=== PATIENT | male | born 1970 | race African-American/Black ===

== ENCOUNTER 2018-04-26 00:10 | Inpatient (IN) ==
[2018-04-26] MEDS ORDERED: hydrALAZINE HCl Inj 20 MG/ML Vial IV.PUSH ONE ×2 (02:50→04:48)
--- NOTE | 2018-04-26 03:40 | CT ---
EXAM DATE: 04/26/2018 3:28 AM EST AGE/SEX: 47 years / Male INDICATIONS: Headaches CLINICAL DATA: This is the patient's initial encounter. Patient reports that signs and symptoms have been present for 1 day and indicates a pain score of 8/10. MEDICAL/SURGICAL HISTORY: None. None. RADIATION DOSE: 53.51 CTDI (mGy) COMPARISON: No prior exams available for comparison. TECHNIQUE: CT of the head without contrast. Using automated exposure control and adjustment of the mA and/or kV according to patient size, radiation dose was kept as low as reasonably achievable to ob tain optimal diagnostic quality images. DICOM format image data is available electronically for revi ew and comparison. FINDINGS: Cerebrum: The ventricles are normal for age. No evidence of midline shift, mass lesion, hemorrhage or acute infarction. No extraaxial fluid collections are seen. Posterior Fossa: The cerebellum and brainstem are intact. The 4th ventricle is midline. The cerebe llopontine angle is unremarkable. Extracranial: The visualized portion of the orbits is intact. Skull: The calvaria is intact. No evidence of skull fracture. CONCLUSION: 1. No acute intracranial abnormalities. . . Electronically signed by: Sanjeev Schneider MD Board Certified Radiologist 04/26/2018 3:39 AM EST
[2018-04-26 03:59] LABS: Baso % (Auto) 0.9 % (0.0-2.0); Eos # (Auto) 0.4 th/mm3 (0.0-0.4); Eos % (Auto) 6.9 % (0.0-4.0); Hematocrit 39.2 % (39.0-51.0); Hemoglobin 13.3 gm/dL (13.0-17.0); Lymph # (Auto) 1.9 th/mm3 (1.0-4.8); Lymph % (Auto) 32.9 % (9.0-44.0); Mean Corpuscular Hemoglobin 30.8 pg (27.0-34.0); Mean Corpuscular Volume 90.7 fL (80.0-100.0); Mean Platelet Volume 8.2 fL (7.0-11.0); Mono # (Auto) 0.4 th/mm3 (0.0-0.9); Mono % (Auto) 7.3 % (0.0-8.0); Neut # (Auto) 2.9 th/mm3 (1.8-7.7); Platelet Count 200 th/mm3 (150-450); Red Blood Count 4.32 mil/mm3 (4.50-5.90); Red Cell Distribution Width 13.9 % (11.6-17.2); White Blood Count 5.7 th/mm3 (4.0-11.0)
[2018-04-26 04:18] LABS: Albumin 3.4 g/dL (3.4-5.0); Anion Gap 6 meq/L (5-15); Aspartate Aminotransferase 100 U/L (15-37); Blood Urea Nitrogen 14 mg/dL (7-18); Calcium 8.8 mg/dL (8.5-10.1); Carbon Dioxide 30.2 meq/L (21.0-32.0); Chloride 108 meq/L (98-107); Glomerular Filtration Rate 89 mL/min (>89); Glucose,Random 86 mg/dL (74-106); Potassium 3.9 meq/L (3.5-5.1); Sodium 144 meq/L (136-145)
[2018-04-26 04:19] LABS: Alanine Aminotransferase 69 U/L (12-78)
[2018-04-26 04:21] LABS: Alkaline Phosphatase 94 U/L (45-117); Total Protein 6.9 g/dL (6.4-8.2)
[2018-04-26] MEDS ORDERED: niCARdipine Inj 25 MG in Sodium Chlor 0.9% Inj 240 ML IV.CONT PRN (04:39)
[2018-04-26] MEDS ORDERED: Bisacodyl 10 MG Supp RECTAL PRN (04:48)
[2018-04-26] MEDS ORDERED: Acetaminophen 325 MG Tablet PO PRN (04:48)
[2018-04-26] MEDS ORDERED: Metoprolol Inj 5 MG/5 ML Vial IV.PUSH ONE (04:48)
--- NOTE | 2018-04-26 05:18 | P.HPIM ---
History of Present Illness Primary Care Physician: No Primary Care Physician History of Present Illness: This is a 47-year-old male with a PMH of HTN and Migraines who presented to the ER with complaints of severe headache in addition to elevated BP. States he is on Clonidine 0.2mg tid at home, reports compliance w/ medication, but states BP not well-controlled at baseline. + headache which he states normally worse w/ elevated BP. Headache is frontal, severe, 10/10, non-radiating, associated w/ blurry vision, no nausea/vomiting. On arrival, BP 216/111, HR 86, O2 sat 98% on RA, Afebrile. S/p Hydralazine in ER w/ minimal improvement. CBC unremarkable. Chemistry unremarkable. CT Head with no acute findings. Diagnosis (1) Hypertensive urgency: (2) Headache: Inpatient Certification Inpatient Certification: I certify that the inpatient services were ordered in accordance with Medicare regulations governing the order. This includes certification that hospital inpatient services are reasonable and necessary and in the case of services not specified as inpatient-only under 42 CFR 419.22(n), that they are appropriately provided as inpatient services in accordance to with the 2-midnight benchmark under 43 CFR 412.3(e) Estimated Total Length of Stay (Days): 2 Plans for Post Hospital Care: Not yet determined Review of Systems PAST FAMILY HISTORY: Reviewed. No h/o DM or CAD Review of Systems: all other systems reviewed are negative [facility] Medical History Medical History Migraine (Acute) HTN (hypertension) (Acute) Hernia (Acute) Surgical History Surgical History History of rotator cuff surgery (Acute) Social History Social History Substance History: No History of Abuse Second Hand Smoke Exposure: Yes Smoking Status: Current every day smoker Tobacco Type: Cigarettes How Often Do You Have a Drink Containing Alcohol: Never Recent Travel in [place] within the Last 8 Weeks: No Recent Out of Country Travel within the Last 8 Weeks: No Immunization History Tetanus Immunization: >5 Years Medications and Allergies Allergies Allergy/AdvReac Type Severity Reaction Status Date / Time No Known Allergies Allergy Verified 03/02/18 22:36 Home Medications Medication Instructions Recorded Confirmed Type clonidine HCl 0.2 mg PO TID 02/06/18 03/02/18 History Active Medications: Active Medications Acetaminophen (Tylenol) 650 mg PO Q4H PRN PRN Reason: Temp > 100.4 Al Hydroxide/Mg Hydroxide (Milk Of Magnesia Liq) 30 ml PO Q12H PRN PRN Reason: Mild Constipation Bisacodyl (Dulcolax Supp) 10 mg RECTAL DAILY PRN PRN Reason: SEVERE CONSITIPATION Clonidine HCl (Catapres) 0.2 mg PO Q8HR KENNETH Lactulose (Lactulose Liq) 30 ml PO DAILY PRN PRN Reason: SEVERE CONSITIPATION Nifedipine (Procardia Xl) 60 mg PO DAILY KENNETH Ondansetron HCl (Zofran Inj) 4 mg IV.PUSH Q6H PRN PRN Reason: NAUSEA OR VOMITING Prochlorperazine Edisylate (Compazine Inj) 10 mg IV.PUSH Q6H PRN PRN Reason: NAUSEA/VOMITING Senna/Docusate Sodium (Chelsey-Colace) 1 tab PO BID [facility] Sennosides (Senokot) 17.2 mg PO Q12H PRN PRN Reason: Moderate Constipation Sodium Chloride (Ns Flush) 2 ml IV.FLUSH BID KENNETH Sodium Chloride (Ns Flush) 2 ml IV.FLUSH PRN PRN PRN Reason: FLUSH AFTER USING IV ACCESS Physical Exam Vital signs: Vital Signs 04/26/18 00:14 04/26/18 02:48 Temperature 98.1 F 98.1 F Pulse Rate 86 67 Respiratory Rate 18 16 Blood Pressure 216/111 H 200/128 H Pulse Oximetry 98 98 Intake & Output 04/25/18 04/25/18 04/26/18 06:59 18:59 06:59 Weight 80.286 kg Narrative: PE: GENERAL: Middle-aged black male in no acute distress, appears to be in pain from headache, eyes closed. SKIN: Focused skin assessment warm and dry. HEENT: PERRLA, EOMI. No scleral icterus or conjunctival pallor. No lid lag or facial droop. CARDIOVASCULAR: Regular rate and rhythm. No obvious murmurs to auscultation. No chest tenderness to palpation. RESPIRATORY: No obvious rhonchi or wheezing. Clear to auscultation. Breath sounds equal bilaterally. GASTROINTESTINAL: Abdomen soft, mild tenderness to palpation, nondistended. BS normal. MUSCULOSKELETAL: Extremities without clubbing, cyanosis, or edema. No obvious deformities. NEUROLOGICAL: Awake, alert and oriented x4. No focal neurologic deficits. Moving both upper and lower extremities spontaneously. PSYCHIATRIC: Appropriate mood and affect. Insight and judgment normal. Results Labs CBC & Chem 7: 04/26/18 03:38 04/26/18 03:[address] 04/26/18 02:50 CONCLUSION: 1. No acute intracranial abnormalities. . . Caprini VTE Risk Assessment Caprini VTE Risk Assessment: No/Low Risk (score <= 1) Caprini Risk Assessment Model: Point Value = 1 Point Value = 2 Point Value = 3 Point Value = 5 Age 41-60 Minor surgery BMI > 25 kg/m2 Swollen legs Varicose veins or History of unexplained or recurrent spontaneous Oral contraceptives or hormone replacement Sepsis (< 1 month) Serious lung disease, including pneumonia (< 1 month) Abnormal pulmonary function Acute myocardial infarction Congestive heart failure (< 1 month) History of inflammatory bowel disease Medical patient at bed rest Age 61-74 Arthroscopic surgery Major open surgery (> 45 min) Laparoscopic surgery (> 45 min) Malignancy Confined to bed (> 72 hours) Immobilizing plaster cast Central venous access Age >= 75 History of VTE Family history of VTE Factor V Leiden Prothrombin [id number] Lupus anticoagulant Anticardiolipin antibodies Elevated serum homocysteine Heparin-induced thrombocytopenia Other congenital or acquired thrombophilia Stroke (< 1 month) Elective arthroplasty Hip, pelvis, or leg fracture Acute spinal cord injury (< 1 month) Prophylaxis Regimen: Total Risk Factor Score Risk Level Prophylaxis Regimen 0-1 Low Early ambulation 2 Moderate Order ONE of the following: *Sequential Compression Device (SCD) *Heparin 5000 units SQ BID 3-4 Higher Order ONE of the following medications: *Heparin 5000 units SQ TID *Enoxaparin/Lovenox 40 mg SQ daily (WT < 150 kg, CrCl > 30 mL/min) *Enoxaparin/Lovenox 30 mg SQ daily (WT < 150 kg, CrCl > 10-29 mL/min) *Enoxaparin/Lovenox 30 mg SQ BID (WT < 150 kg, CrCl > 30 mL/min) AND/OR *Sequential Compression Device (SCD) 5 or more Highest Order ONE of the following medications: *Heparin 5000 units SQ TID (Preferred with Epidurals) *Enoxaparin/Lovenox 40 mg SQ daily (WT < 150 kg, CrCl > 30 mL/min) *Enoxaparin/Lovenox 30 mg SQ daily (WT < 150 kg, CrCl > 10-29 mL/min) *Enoxaparin/Lovenox 30 mg SQ BID (WT < 150 kg, CrCl > 30 mL/min) AND *Sequential Compression Device (SCD) Assessment and Plan (1) Hypertensive urgency: Code(s): I16.0 - Hypertensive urgency Status: Acute (2) Headache: Code(s): R51 - Headache Status: Acute Plan A/P: 1. Hypertensive Urgency: HTN uncontrolled, BP 200's on arrival w/ associated headache and blurry vision, s/p Hydralazine IV w/ minimal improvement, CT Head w / no acute findings, give additional Hydralazine 10mg IV and Lopressor 5mg IV, start home Clonidine and Nifedipine, monitor BP closely, antihypertensives as needed for BP >180 2. Headache: h/o Migraine, headache likely compounded by above, CT Head negative, analgesics/antiemetics as needed. 3. DVT Prophylaxis: SCD/teds. 4. Social work for DC planning as needed. 5. Case discussed at length with the ER physician, labs/records/imaging reviewed by me.
--- NOTE | 2018-04-26 05:27 | ED ---
HPI General Chief Complaint: Headache Stated Complaint: Headaches Time Seen by Provider: 04/26/18 02:50 Source: patient Mode of arrival: ambulatory Limitations: no limitations History of Present Illness HPI Narrative: 47-year-old male came to the emergency room with history of headache. His blood pressure was extremely high in triage. Patient says he has history of hypertension and takes Lopressor and clonidine for it. Patient says that he is taking his medication like he supposed to. Patient did not appear to be very conversant and was talking with his eyes closed mostly. Upon asking he said that his head hurt all over. No aggravating or relieving factors identified. No radiation of the pain. Related Data Previous Rx's Medication Instructions Recorded clonidine HCl [Catapres] 0.2 mg PO Q8HR 30 Days #90 tab 04/26/18 Allergies Allergy/AdvReac Type Severity Reaction Status Date / Time No Known Allergies Allergy Verified 03/02/18 22:36 Review of Systems ROS: all other systems reviewed are negative [facility] Medical History Medical History Migraine (Acute) HTN (hypertension) (Acute) Hernia (Acute) Surgical History Surgical History History of rotator cuff surgery (Acute) Social History Social History Substance History: No History of Abuse Second Hand Smoke Exposure: Yes Smoking Status: Current every day smoker Tobacco Type: Cigarettes How Often Do You Have a Drink Containing Alcohol: Never Recent Travel in [facility] within the Last 8 Weeks: No Recent Out of Country Travel within the Last 8 Weeks: No Immunization History Tetanus Immunization: >5 Years Exam Narrative Exam Narrative: GENERAL: Awake, alert, no obvious to SKIN: Focused skin assessment warm/dry. HEAD: Atraumatic. Normocephalic. EYES: Pupils equal and round. No scleral icterus. No injection or drainage. ENT: No nasal bleeding or discharge. Mucous membranes pink and moist. NECK: Trachea midline. No JVD. CARDIOVASCULAR: Regular rate and rhythm. No murmur appreciated. RESPIRATORY: No accessory muscle use. Clear to auscultation. Breath sounds equal bilaterally. GASTROINTESTINAL: Abdomen soft, non-tender, nondistended. Hepatic and splenic margins not palpable. MUSCULOSKELETAL: No obvious deformities. No clubbing. No cyanosis. No edema. NEUROLOGICAL: Awake and alert. No obvious cranial nerve deficits. Motor grossly within normal limits. Normal speech. PSYCHIATRIC: Appropriate mood and affect; insight and judgment normal. Course Initial Documented Vital Signs Temperature 98.1 F 04/26/18 00:14 Pulse Rate 86 04/26/18 00:14 Respiratory Rate 18 04/26/18 00:14 Blood Pressure 216/111 H 04/26/18 00:14 Pulse Oximetry 98 04/26/18 00:14 Last Documented Vital Signs Temperature 98.3 F 04/26/18 12:52 Pulse Rate 64 04/26/18 12:52 Respiratory Rate 19 04/26/18 12:52 Blood Pressure 140/86 04/26/18 12:52 Pulse Oximetry 98 04/26/18 12:52 Medical Decision Making MDM Narrative Medical decision making narrative: 5 AM patient was given IV hydralazine. Blood test results and CAT scan are within normal limit. Repeat blood pressure continues to be high. Decided to admit the patient to the hospital in the hospital was accepted the patient. I had ordered a Cardene drip to lower the blood pressure but hospitalist will try other medications first. Medical Screen Exam Complete: Yes Emergency Medical Condition: Yes Lab Data Result diagrams: 04/26/18 03:38 04/26/18 03:38 Lab Results 04/26/18 04/26/18 Range/Units 03:38 03:38 WBC 5.7 (4.0-11.0) th/mm3 RBC 4.32 L (4.50-5.90) mil/mm3 Hgb 13.3 (13.0-17.0) gm/dL Hct 39.2 (39.0-51.0) % MCV 90.7 (80.0-100.0) fL MCH 30.8 (27.0-34.0) pg MCHC 34.0 (32.0-36.0) % RDW 13.9 (11.6-17.2) % Plt Count 200 (150-450) th/mm3 MPV 8.2 (7.0-11.0) fL Neut % (Auto) 52.0 (16.0-70.0) % Lymph % (Auto) 32.9 (9.0-44.0) % [place]eves % (Auto) 7.3 (0.0-8.0) % Eos % (Auto) 6.9 H (0.0-4.0) % Baso % (Auto) 0.9 (0.0-2.0) % Neut # (Auto) 2.9 (1.8-7.7) th/mm3 Lymph # (Auto) 1.9 (1.0-4.8) th/mm3 [place]eves # (Auto) 0.4 (0.0-0.9) th/mm3 Eos # (Auto) 0.4 (0.0-0.4) th/mm3 Baso # (Auto) 0.0 (0.0-0.2) th/mm3 WBC Differential . Differential Comment Auto diff final Sodium 144 (136-145) meq/L Potassium 3.9 (3.5-5.1) meq/L Chloride 108 H (98-107) meq/L Carbon Dioxide 30.2 (21.0-32.0) meq/L Anion Gap 6 (5-15) meq/L BUN 14 (7-18) mg/dL Creatinine 1.08 (0.60-1.30) mg/dL Estimated GFR 89 (>89) mL/min Random Glucose 86 (74-106) mg/dL Calcium 8.8 (8.5-10.1) mg/dL Total Bilirubin 0.3 (0.2-1.0) mg/dL AST 100 H (15-37) U/L ALT 69 (12-78) U/L Alkaline Phosphatase 94 (45-117) U/L Total Protein 6.9 (6.4-8.2) g/dL Albumin 3.4 (3.4-5.0) g/dL Imaging Data Radiologist's impression: Head CT 04/26/18 02:50 CONCLUSION: 1. No acute intracranial abnormalities. . . ECG Data Attestation: I personally reviewed and interpreted this ECG as follows: Interpretation: Twelve-lead EKG was reviewed by me. Normal sinus rhythm, normal axis, J-point elevation. Heart rate is 63 bpm. Discharge Plan Discharge Disposition Patient Disposition: ED Admit(ED Internal Use Only) Discharge Condition Condition: Stable Discharge Order Discharge Orders: Discharge Order (Routine); Ordered 04/26/18 Ordered By: Odilia Thornton ED Use Only Admit Order (Routine); Ordered 04/26/18 Ordered By: Koko Cintron Discharge Details Anticipated Discharge Date: 04/26/18 Physicians Team ED Provider: Koko Cintron Primary Care Provider: Primary Care Kasia Mckenna Attending Provider: Odilia Thornton Status ED Status: Left Department Discharge Information Discharge Date/Time: 04/26/18 13:39
[2018-04-26] MEDS ORDERED: Senna/Docusate Sodium 8.6/50 MG Tablet PO SCH (09:00)
--- NOTE | 2018-04-26 09:00 | P.PNIM ---
Patient seen and examined this morning. He presented overnight with headache and was found to have hypertensive urgency. He required a Nicardipine drip, Hydralazine IV and Lopressor IV. BP has normalized and he has been resumed on his usual dose of Clonidine. On interviewing patient this morning, he says his headache has resolved. He says he had ran out of his Clonidine, last dose was yesterday morning. Usually his BP is controlled when he takes his medication. He has no PCP but says he [facility] Monitor BP trends this morning, if remains stable, can discharge with his usual dose of Clonidine. I have discussed with patient importance of following up with PCP, recommended him to go to [place] or [facility] clinic. 12:45pm Patient doing well. Systolic BP has remained in the 130-140 range. Patient want to go home. He says he will be able to fill his Prescription at [facility]. Stable for discharge.
[2018-04-26 12:53] VITALS: BP 140/86; PULSE 64; RESP 19; TEMP 98.3; O2SAT 98
--- NOTE | 2018-04-26 12:58 | P.DS ---
DS: Providers Date of admission: 04/26/18 04:48 Primary care physician: No Primary Care Physician Brief History from admission: This is a 47-year-old male with a PMH of HTN and Migraines who presented to the ER with complaints of severe headache in addition to elevated BP. States he is on Clonidine 0.2mg tid at home, reports compliance w/ medication, but states BP not well-controlled at baseline. + headache which he states normally worse w/ elevated BP. Headache is frontal, severe, 10/10, non-radiating, associated w/ blurry vision, no nausea/vomiting. On arrival, BP 216/111, HR 86, O2 sat 98% on RA, Afebrile. S/p Hydralazine in ER w/ minimal improvement. CBC unremarkable. Chemistry unremarkable. CT Head with no acute findings. DS: Diagnosis Discharge Diagnosis (1) Hypertensive urgency: Status: Acute (2) Headache: Status: Acute DS: Summary In the ER patient was initially placed on Nicardipine drip,received IV Hydralazine,and Lopressor as well with improvement of his BP. His headache subsided. Patient was admitted for hypertensive urgency. On further questioning today, patient reported that he had run out of his Clonidine. HTN urgency was likely due to rebound hypertension in the setting of missed dose of Clonidine. His usual dose of Clonidine 0.2mg tid was resumed. His systolic BP is stable in 130-140 range and headache has completely subsided. Patient has been advised on need to adhere to his medication and keep to a low salt diet. He has been advised to follow up at [facility]. He was given a prescription for Clonidine on discharge which he [facility] Time Spent with Patient Total time spent providing and/or coordinating discharge services:30 minutes Results Labs on day of discharge: Labs from last 24 hours 04/26/18 04/26/18 03:38 03:38 WBC 5.7 RBC 4.32 L Hgb 13.3 Hct 39.2 MCV 90.7 MCH 30.8 MCHC 34.0 RDW 13.9 Plt Count 200 MPV 8.2 Neut % (Auto) 52.0 Lymph % (Auto) 32.9 [place] % (Auto) 7.3 Eos % (Auto) 6.9 H Baso % (Auto) 0.9 Neut # (Auto) 2.9 Lymph # (Auto) 1.9 [place] # (Auto) 0.4 Eos # (Auto) 0.4 Baso # (Auto) 0.0 WBC Differential . Differential Comment Auto diff final Sodium 144 Potassium 3.9 Chloride 108 H Carbon Dioxide 30.2 Anion Gap 6 BUN 14 Creatinine 1.08 Estimated GFR 89 Random Glucose 86 Calcium 8.8 Total Bilirubin 0.3 AST 100 H ALT 69 Alkaline Phosphatase 94 Total Protein 6.9 Albumin 3.4 Impressions ITS Impressions Head CT 04/26/18 02:50 CONCLUSION: 1. No acute intracranial abnormalities. . . Discharge Plan Discharge Disposition Patient Disposition: Discharge Home Discharge Condition Condition: Stable Discharge Order Discharge Orders: Discharge Order (Routine); Ordered 04/26/18 Ordered By: Odilia Thornton Discharge Details Anticipated Discharge Date: 04/26/18 Physicians Team Primary Care Provider: Kasia Brewster Attending Provider: Odilia Thornton Rxs /Orders / Referrals /Forms Prescriptions: Continue clonidine HCl 0.2 mg Tablet 0.2 mg PO TID 30 Days Qty: 90 RF: 0 Referrals: [facility] [Outside] - See Instructions Primary Care Kasia Mckenna [Primary Care Provider] - See Instructions Status ED Status: Admitted Patient
--- NOTE | 2018-04-27 00:49 | ECG ---
Date Performed: 04/26/2018 Time Performed: 02:27:42 PTAGE: 47 years EKG: Sinus rhythm POSSIBLE LEFT ATRIAL ENLARGEMENT ST ELEVATION, PROBABLY EARLY REPOLARIZATION NONSPECIFIC T-WAVE ABNO RMALITY BORDERLINE ECG INTERPRETATION BASED ON A DEFAULT AGE OF 40 YEARS NO PREVIOUS TRACING DOCTOR: Anuel Echavarria Interpretating Date/Time 04/27/2018 00:48:44
== END 2018-04-26 14:00 | disposition home or self-care (01) | DRG 305 ==
LOC: NEPE 00:10 → NEDA 04:48
PROVIDERS: ADMIT Hospitalist; ATTEND Hospitalist
DX: Z91.14 Patient's other noncompliance with medication regimen; G43.909 Migraine, unspecified, not intractable, without status migrainosus; I16.0 Hypertensive urgency; I10 Essential (primary) hypertension; F17.210 Nicotine dependence, cigarettes, uncomplicated
CPT/HCPCS: 70450; 80053; 85025; 90774; 90784; 93005; 96374; 99285; C8952; J0360